=== PATIENT | female | born 1995 ===

== ENCOUNTER 2018-08-03 06:55 | Inpatient (IN) | payer BC, OTHER ==
[2018-08-03] VITALS (37 sets, daily range): BP systolic 104–150; BP diastolic 54–92; PULSE 86–156; TEMP 98–99.4
[~2018-08-03] VITALS: Ht 165.1 cm; Wt 84.5 kg
--- NOTE | 2018-08-03 07:00 | NUR ---
0700- Pt arrives on unit ambulatory with spouse. Complains of UCs since 0200 this morning. Denies VB/LOF. +FM. Pt into bathroom, changes into gown. 0706- Pt into bed, EFM and TOCO on and tracing well. Assessment completed. 722- by this RN 3-4/80/-2, bloody show noted on glove. Plan of care explained. Pt encouraged to drink water she brought from home, [place] juice provided. Call light within reach.
[2018-08-03] MEDS ORDERED: PRENATAL MVI (07:16)
[2018-08-03] MEDS ORDERED: ALMACONE 360 M360 ML PO (07:17)
--- NOTE | 2018-08-03 08:33 | NUR ---
0833- Juma HEBERT by this RN, .
--- NOTE | 2018-08-03 09:00 | NUR ---
0856- Dr Barry at bedside. Discussed plan of care. Questions encouraged and answered. SVE by , AROM with clear, odorless fluid noted. Pt tolerated well.
[2018-08-03 09:30] LABS: BASO % 0.2 % (0.0-2.0); EOS # 0.1 (0.0-0.7); EOS % 0.6 % (0-4.0); GRAN # 12.9 (1.4-6.5); HEMOGLOBIN 10.1 g/dl (12.5-16.0); LYMPH % 12.7 % (20.0-51.0); MEAN CELL VOLUME 77 fl (80.0-100.0); MEAN CORPUSCULAR HEMOGLOBIN 23 pg (27.0-31.0); MEAN CORPUSCULAR HGB CONC 30 g/dl (33.0-37.0); MEAN PLATELET VOLUME 10.8 fl (7.4-10.4); PLATELET COUNT 313 K/mm3 (130-400); RED BLOOD COUNT 4.36 M/mm3 (4.10-5.30); REDCELL DISTRIBUTION WIDTH-CV 15.9 % (11.5-14.5)
[2018-08-03 09:32] LABS: HEMATOCRIT 33.4 % (37.0-47.0)
[2018-08-03 09:45] LABS: TRICYCLIC ANTIDEPRESS URINE NEGATIVE
--- NOTE | 2018-08-03 10:40 | NUR ---
Pt requesting epidural. LR bolus infusing. Awais Becerra CRNA notified. 1050-Pt sitting upright for epidural placement. Difficulty tracing FHR. RN at bedside adjusting monitors. FHR audible. 1104- Test dose administered by Awais Becerra CRNA. No adverse effects noted. See anesthesia record. 1105-Pt repositioned WL. Updated on POC. Safety reviewed.
--- NOTE | 2018-08-03 12:00 | NUR ---
Patient breathing through contractions and states she is feeling pain in her left lower abdomen and back. Patient repositioned to far left lateral. Patient reports that she pressed epidural dose button but it is not helping with pain. Awais Becerra CRNA called and notified of patient pain. Will be in to evaluate and dose epidural.
--- NOTE | 2018-08-03 12:55 | NUR ---
1255: Patient crying and feeling contractions. Awais Becerra CRNA notified and will replace epidural. Patient repositioned and sitting up at side of bed for epidural placement. Test dose 1314. No reaction to test dose. Patient states she is feeling pressure in her buttock during contractions. Patient repositioned, wedged left at 1318. SVE 9-10/100/0. Patient states the contractions are less intense. See anesthesia records.
--- NOTE | 2018-08-03 14:35 | NUR ---
1435: SVE /+2. Dr. Barry called with an update. Will call back for delivery. 1445: Patient educated on proper pushing technique and begins pushing with contractions.
--- NOTE | 2018-08-03 14:50 | NUR ---
1450: Dr. Barry at bedside and evaluates pushing. Report on patient pulse.
--- NOTE | 2018-08-03 15:10 | NUR ---
1510: Dr. Barry in room for delivery. 1515: Spontaneous vaginal delivery of head, immediately followed by infant body. nose and mouth suctioned out using bulb syringe by Dr. Barry. Infant umbilical cord clamped and cut by Dr. Barry. Infant to mothers abdomen where attended to by Barbie Palmer RN. 1519: Spontaneous and intact delivery of placenta. Pitocin started at 333ml/hr. Fundus massage, atony noted but firms up with massage. Free flow noted. Dr. Barry gives verbal order to give IM methergine 0.2mg. Methergine given at 1522. 1525: Fundus firm and minimal free flow noted. Second degree perineal laceration repaired. Pericare provided, ice pack to perineum. Patient sitting up in bed. Dr. Barry aware of patient vital signs. See anesthesia records, doctor dictation and labor and delivery summary.
--- NOTE | 2018-08-03 17:40 | NUR ---
Patient sitting up in bed, epidural catheter removed, blue tip intact and band aid to site. IV to INT. Pericare provided and ice pack to perineum. Patient is planning to eat then will move to room 208.
--- NOTE | 2018-08-03 18:05 | NUR ---
Patient given motrin for back ache. Patient ambulates to bathroom, able to void, pericare taught and provided. Ice pack to perineum and new gown on. Patient ambulates to room 208. Oriented to room and call light. Patient resting in bed.
[2018-08-04 00:10] VITALS: BP 110/68; PULSE 98; TEMP 98.1
[2018-08-04 03:16] VITALS: BP 111/68; PULSE 86; TEMP 98.2
[2018-08-04 09:04] VITALS: BP 118/48; PULSE 110; TEMP 97.6
--- NOTE | 2018-08-04 10:05 | NUR ---
Initial visit; Mom thanked Certified Medical Dosimetrist for offering congratulations and God's blessings for the of her daughter. Certified Medical Dosimetrist thanked family for choosing [facility].
--- NOTE | 2018-08-04 16:14 | NUR ---
bending shed worker met with patient, father of the baby and grandfather to assess needs. Patient states she lives with father of the baby and plans to take off a few weeks before she returns to work. Patient states she has a car seat and all needed equipment for her baby. Father of baby states that they have friends that are parents and they have offered to babysit. Both sets of grandparents live out of town/state. Worker provided written and verbal information on local resources. Patient financial services assistant met with patient and completed application for medicaid for patient and baby. Worker collaborated with nurse regarding the above information.
[2018-08-04 16:20] VITALS: BP 104/53; PULSE 96; TEMP 98.5
[2018-08-04 20:00] VITALS: BP 122/68; PULSE 100; TEMP 98.8
[2018-08-05 06:30] VITALS: BP 112/63; PULSE 82; TEMP 97.5
[2018-08-05] MEDS ORDERED: IBU800 M1 PO (08:22)
[2018-08-05] MEDS ORDERED: PERCOCET 325 MG1 TA2 PO (08:22)
--- NOTE | 2018-08-05 14:40 | NUR ---
Patient given dc instructions. Denies questions. Escorted off unit with RN assist in wheelchair. Carseat straps checked per protocol.
--- NOTE | 2018-08-06 08:30 | NUR ---
SW received baby's cord blood. The cord blood tests were all negative.
== END 2018-08-05 14:40 | disposition home or self-care (01) | DRG 807 ==
LOC: LDRO 06:55 → LDR 07:00 → LDRO 08:40 → OB 08:40 → LDR 08:40 → OB 18:15
PROVIDERS: Obstetrics & Gynecology; ADMIT Obstetrics & Gynecology
PROC: 10E0XZZ Delivery of Products of Conception, External Approach (ICD-10-PCS; principal; 2018-08-03)
PROC: 0KQM0ZZ Repair Perineum Muscle, Open Approach (ICD-10-PCS; 2018-08-03)
DX: O70.1 Second degree perineal laceration during delivery (principal); Z37.0 Single live birth; Z3A.40 40 weeks gestation of pregnancy; O99.344 Other mental disorders complicating childbirth; F41.9 Anxiety disorder, unspecified; O26.893 Other specified pregnancy related conditions, third trimester; Z67.11 Type A blood, Rh negative
CPT/HCPCS: J2210; J2590; J2791; J7120